=== PATIENT | male | born 1980 | race Hispanic/Latino ===

== ENCOUNTER 2021-09-03 15:28 | Emergency (ER) | payer OTHER, SELFPAY ==
--- NOTE | 2021-09-03 15:29 | ED.URI ---
HPI - URI/Sore Throat General Chief Complaint: Upper Respiratory Infection Stated Complaint: congestion/sore throat Time Seen by Provider: 09/03/21 15:29 Source: patient and RN notes reviewed History of Present Illness HPI Narrative: Patient is a 41-year-old female presents the urgent care with complaints of chills, sweats, fever, sore throat and congestion. Patient states that it started . 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 Patient has been taking Aleve [id number] for chills and sweats. No other acute complaints. No acute distress noted. Patient aware the plan of care. Some parts of this dictation were generated by voice recognition software and may contain typographical and/or grammatical inaccuracies. Related Data Home Medications Medication Instructions Recorded Confirmed diltiazem HCl 09/03/21 lisinopril 09/03/21 rosuvastatin mg 09/03/21 sildenafil 09/03/21 Allergies Allergy/AdvReac Type Severity Reaction Status Date / Time poison oak extract Allergy Mild Verified 06/18/19 20:01 poison sumac extract Allergy Mild Verified 06/18/19 20:01 Review of Systems Review of Systems: CONSTITUTIONAL: Reports of fever, chills, sweats EYES: Denies visual changes, redness, or discharge. ENT: Reports of sinus congestion, sore throat CARDIOVASCULAR: Denies chest pain, palpitations, or edema. RESPIRATORY: Denies cough or dyspnea. GASTROINTESTINAL: Denies abdominal pain, nausea, vomiting, or diarrhea. GENITOURINARY: Denies dysuria or hematuria. SKIN: Denies rash or itching. MUSCULOSKELETAL: Denies back pain, joint pain, or myalgia. NEUROLOGIC: Denies headache, numbness, or weakness. All other systems reviewed are negative, except as documented in HPI. PMFSH Comments At the time of my signature, I reviewed and agree with the nursing past medical, surgical, social, and family history. There is no relevant family history pertinent to the patient complaint. Exam Narrative: GENERAL: This is a well-nourished, well-developed patient, mild diaphoretic HEAD: normocephalic, atraumatic. EYES: PERRL. Sclera clear/white. Vision is grossly intact. EARS: External ears normal, auditory canals clear and without drainage, TMs normal without perforation. Hearing grossly intact. NOSE: External nose normal with no obvious nasal discharge, mild bilateral erythemic nares with clear rhinorrhea. THROAT: Mucous membranes moist, posterior pharynx clear. Mild postnasal drainage NECK: Neck supple CARDIOVASCULAR: Regular rate and rhythm without murmurs, gallops, or rubs. RESPIRATORY: Clear to auscultation. Breath sounds equal bilaterally. No wheezes, rales, or rhonchi. SKIN: Slightly flushed. Warm, intact with no suspicious lesions or rash, good texture and turgor. NEURO: awake, alert, and oriented to person, place and time. There were no obvious focal neurologic abnormalities. EXTREMITIES: No clubbing, cyanosis, or edema. Course Vital Signs Vital signs: Vital Signs Temperature 97.1 F L 09/03/21 15:37 Pulse Rate 74 09/03/21 15:37 Respiratory Rate 16 09/03/21 15:37 Blood Pressure 143/100 H 09/03/21 15:37 Pulse Oximetry 97 09/03/21 15:37 Temperature 97.1 F L 09/03/21 15:37 Pulse Rate 74 09/03/21 15:37 Respiratory Rate 16 09/03/21 15:37 Blood Pressure 143/100 H 09/03/21 15:37 Pulse Oximetry 97 09/03/21 15:37 Reviewed-patient is informed that they may have pre-hypertension or hypertension based on a blood pressure reading in the department. I recommend the patient call the primary care provider listed on their discharge instructions or a physician of their choice this week to arrange follow-up for further evaluation of possible pre-hypertension or hypertension. MDM - URI/Sore Throat MDM Narrative Medical decision making narrative: Reviewed lab
[2021-09-03 15:37] VITALS: BP 143/100; PULSE 74; RESP 16; TEMP 36.2; O2SAT 97
== END 2021-09-03 16:15 | disposition home or self-care (01) ==
PROVIDERS: Emergency Provider Nurse Practitioner Family
DX: J06.9 Acute upper respiratory infection, unspecified (principal); Z20.822 Contact with and (suspected) exposure to COVID-19; E78.00 Pure hypercholesterolemia, unspecified; I10 Essential (primary) hypertension
CPT/HCPCS: 87081; 87426; 87804; 87880; 99213; C9803; G0463

== ENCOUNTER 2023-09-17 16:02 | Emergency (ER) | payer OTHER, SELFPAY ==
--- NOTE | ~2023-09-17 | XR_ITS ---
EXAMINATION: XR chest 2V DATE: 09/17/2023 17:03 INDICATION: Productive cough TECHNIQUE: PA and lateral views of the chest are obtained. COMPARISON: 02/03/2016 FINDINGS: The lungs are free of acute opacities. No pleural effusion or pneumothorax. The cardiomedia stinal silhouette is normal. There is moderate thoracic spondylosis. IMPRESSION: 1. No acute cardiopulmonary abnormality. Reviewed, dictated and finalized at location L. ER [employer] REPA[employer]ER
[2023-09-17 16:25] VITALS: BP 135/103; PULSE 89; RESP 18; TEMP 38.9; O2SAT 97
[2023-09-17 16:29] VITALS: BP 135/103; PULSE 89; RESP 18; TEMP 38.9; O2SAT 97
[2023-09-17 16:45] VITALS: BP 149/99; PULSE 88
[2023-09-17 16:53] VITALS: TEMP 38.9
[2023-09-17] MEDS: ACETAMINOPHEN 500 MG TABLET 1000 MG PO (16:53)
--- NOTE | 2023-09-17 17:14 | ED.URI ---
HPI - URI/Sore Throat General Chief Complaint: Upper Respiratory Infection Stated Complaint: Bodyaches/Fever Source: patient and RN notes reviewed Mode of arrival: ambulatory Limitations: no limitations History of Present Illness HPI Narrative: 43-year-old male presented for complaint of headache, body aches, sinus pressure/congestion, cough, fever/chills. onset slowly over the past few days. Symptoms started with tickle in throat 3 days ago. He states he felt the worst yesterday. Not taking anything for symptoms. Denies sob, wheezing, n/v/d. Patient states he had COVID at the end of July, with symptoms until 09/10/2023. Also reports previous covid resulted in hospitalization. MD elicited complaint: cough Related Data Home Medications Medication Instructions Recorded Confirmed diltiazem HCl 90 mg tablet 09/03/21 lisinopril 40 mg tablet 09/03/21 rosuvastatin 20 mg tablet mg 09/03/21 aspirin 81 mg chewable tablet 81 mg PO DAILY 09/17/23 09/17/23 Allergies Allergy/AdvReac Type Severity Reaction Status Date / Time poison oak extract Allergy Mild Unknown Verified 09/17/23 16:27 poison sumac extract Allergy Mild Unknown Verified 09/17/23 16:27 Review of Systems Review of Systems: CONSTITUTIONAL: Endorses malaise, chills, sweats, fever EYES: Denies visual changes, redness, or discharge ENT: Reports rhinorrhea, congestion, sore throat CARDIOVASCULAR: Denies chest pain, palpitations, edema RESPIRATORY: Reports cough, Denies dyspnea GASTROINTESTINAL: Denies abdominal pain, nausea, vomiting, diarrhea SKIN: Denies rash or itching MUSCULOSKELETAL: Endorses myalgia NEUROLOGIC: Endorses headache [facility] Past Medical History Medical History (Updated 09/17/23 @ 17:31 by Joyce Neumann, SLEEVE TAILOR) CAD (coronary artery disease) HTN (hypertension) Exam Narrative: GENERAL: Mildly Ill-appearing, nontoxic no acute distress. HEAD: Normocephalic EYES: PERRLA, conjunctivae clear ENT: Mucous membranes moist. TM pearly hartman with dull light reflex bilaterally; no tragal tenderness. Oropharynx erythematous without lesions or exudate, no drooling, no hoarseness, no trismus, uvula midline. CHEST: Clear to auscultation, breath sounds equal. No wheezing, rhonchi, rales, or stridor. No respiratory distress, speaks in full sentences. HEART: Regular rate and rhythm. No murmur heard. SKIN: Warm, dry, no rash. NEURO: Alert and oriented x3. PSYCH: Normal mood and affect Course Course Emergency Course: Patient is aware of diagnosis, understands and agrees to treatment plan. Anticipatory guidance given. Patient agrees to follow-up as directed and is aware of reasons to seek care at the emergency department. Portions of this record may have been created with voice recognition software Level of Care: Express Care Visit Vital Signs Vital signs: Vital Signs Temperature 102.0 F H 09/17/23 16:25 Pulse Rate 89 09/17/23 16:25 Respiratory Rate 18 09/17/23 16:25 Blood Pressure 135/103 H 09/17/23 16:25 Pulse Oximetry 97 09/17/23 16:25 Oxygen Delivery Room Air 09/17/23 16:25 Temperature 102.0 F H 09/17/23 16:53 Pulse Rate 88 09/17/23 16:45 Respiratory Rate 18 09/17/23 16:29 Blood Pressure 149/99 H 09/17/23 16:45 Pulse Oximetry 97 09/17/23 16:29 Oxygen Delivery Room Air 09/17/23 16:29 reviewed MDM - URI/Sore Throat MDM Narrative Medical decision making narrative: COVID positive. Discussed physical exam findings. Advised supportive measures and signs/symptoms to go to the ER. Pt is appropriate for outpt treatment and f/u. Differential Diagnosis Differential diagnosis: Likely upper respiratory infection, sinusitis and viral infection Lab Data Labs: Influenza A Screen Negative Reference Range: Negative Influenza B Screen Negative Reference Range: Negative
[2023-09-17 17:32] VITALS: TEMP 37.7
== END 2023-09-17 17:32 | disposition home or self-care (01) ==
PROVIDERS: Emergency Provider Nurse Practitioner Family; PCP Hospitalist
DX: U07.1 COVID-19 (principal); I25.10 Atherosclerotic heart disease of native coronary artery without angina pectoris; I10 Essential (primary) hypertension; Z79.82 Long term (current) use of aspirin
CPT/HCPCS: 71046; 87426; 87804; 99213; A9270; C9803; G0463

== ENCOUNTER 2024-12-19 13:46 | Emergency (ER) | payer SELFPAY ==
[2024-12-19 13:55] VITALS: BP 146/107; PULSE 68; RESP 14; TEMP 36.4; O2SAT 99
--- NOTE | 2024-12-19 14:02 | ED_ITS ---
HPI - URI/Sore Throat General Chief Complaint: Upper Respiratory Infection Stated Complaint: freezing ,VELA, swollen achy,congestion Time Seen by Provider: 12/19/24 14:02 Source: patient, RN notes reviewed and old records reviewed Mode of arrival: ambulatory Limitations: no limitations History of Present Illness HPI Narrative: Patient presents with complaints of flu-like symptoms for the past 2-3 days. He recently moved and feels as though he has some sensitivity to his surroundings. He began taking Flonase and Margie couple of days ago. He does admit that he for about take it this morning, also for cause take his blood pressure medications today. He is unsure of fever status over the past few days. Reports chills, headache, body aches congestion. He does not appear to be in any distress at this time Related Data Home Medications ?Medication ?Instructions ?Recorded ?Confirmed ?Last Taken ?Type diltiazem HCl 90 mg tablet 90 mg PO DAILY 09/03/21 12/19/24 Unknown History aspirin 81 mg chewable tablet 81 mg PO DAILY 09/17/23 12/19/24 Unknown History lisinopril 40 mg tablet 40 mg PO DAILY 12/19/24 12/19/24 Unknown History rosuvastatin 20 mg tablet 20 mg PO DAILY 12/19/24 12/19/24 Unknown History Allergies Allergy/AdvReac Type Severity Reaction Status Date / Time poison oak extract Allergy Mild Unknown Verified 12/19/24 13:48 poison sumac extract Allergy Mild Unknown Verified 12/19/24 13:48 Review of Systems Review of Systems: All systems reviewed & are unremarkable except as noted in HPI and below Constitutional: Constitutional: Reports no additional constitutional complaints, Reports body ache(s), Reports chills, Reports headache(s) and Reports lethargy ENT: Reports system reviewed and no additional complaints, except as documented, Reports nasal congestion and Reports nasal discharge Cardiovascular: Cardiovascular: Reports no additional cardiovascular complain ts Respiratory: Respiratory: Reports no additional respiratory complaints and Reports wheezing (Occasional) Gastrointestinal: Gastrointestinal: Reports no additional gastrointestinal complaints [facility] Past Medical History Medical History (Updated 12/19/24 @ 14:40 by Alysia Sommers APRN) HTN (hypertension) CAD (coronary artery disease) Comments At the time of my signature, I reviewed and agree with the nursing past medical, surgical, social, and family history. There is no relevant family history pertinent to the patient complaint. Exam Const: General: cooperative, no acute distress, alert and awake Orientation/consciousness: oriented to person, oriented to place and oriented to time HENMT: Head: normal to inspection Ears: TM's normal bilaterally Mouth: Yes moist mucous membranes Resp: Effort & Inspection: normal respiratory effort and able to speak in complete sentences Auscultation: clear to auscultation bilaterally, no crackles, no rales, no rhonchi and no wheezes Cardio: Palpation: normal PMI Rate: regular rate Rhythm: regular rhythm Heart sounds: S1 normal heart sound present and S2 normal heart sound present Neuro: General: oriented to person, oriented to place and oriented to time Cranial nerves: Yes CN's II-XII intact bilaterally Psych: Appearance: grossly normal Thought process: Normal thought process present Insight: Good insight present (Psych) Judgement: Good judgement present (Psych) Course Course Level of Care: Express Care Visit Vital Signs Vital signs: Reviewed MDM - URI/Sore Throat MDM Narrative Medical decision making narrative: Negative flu, negative COVID. Patient nontoxic appearing. Stable for discharge home with supportive care measures. He is advised to continue with Flonase and Margie, start prednisone and albuterol. Emergency department precautions discussed. Discharge instructions reviewed with patient, as well as provided in writing per nursing staff. The instructions also include specific and strict return/GO TO THE ER as well as f/u information. All questions have been answered, and the patient deny any further questions with discharge and discharge plan. Some parts of this dictation were generated by voice recognition software and may contain typographical and/or grammatical inaccuracies. Differential Diagnosis Differential diagnosis: Likely upper respiratory infection, otitis media, sinusitis, viral infection, influenza and other (Allergic rhinitis) Medical Records Attestation: I reviewed the patient's medical records. Lab Data Attestation: I reviewed the patient's lab results. Discharge Plan Discharge Clinical Impression: Upper respiratory infection Qualifiers: URI type: unspecified URI Qualified Code(s): J06.9 - Acute upper respiratory infection, unspecified Patient Disposition: Home, Self-Care Condition: Stable Instructions: Antibiotic Form Additional Instructions: Take all medications as prescribed. Follow with primary care provider. Emergency department for new or worsening symptoms Patient Language: Turkmen Prescriptions: New prednisone 50 mg tablet 50 mg PO DAILY Qty: 5 0RF albuterol sulfate [Ventolin HFA] 90 mcg/actuation HFA aerosol inhaler 2 puff inhalation QID PRN (Reason: shortness of breath or wheezing) Qty: 8.5 0RF No Action lisinopril 40 mg tablet 40 mg PO DAILY rosuvastatin 20 mg tablet 20 mg PO DAILY diltiazem HCl 90 mg tablet 90 mg PO DAILY aspirin 81 mg Tablet,Chewable 81 mg PO DAILY Follow-up/Referrals: Lara,Reyes Jha Jr., MD [Primary Care Provider] - Stand Alone Forms: Work/School Release IP Time of Disposition: 14:41
[2024-12-19 14:27] LABS: EDCOVIDSCREEN Negative (Negative); EDINFLUASCREEN Negative (Negative); EDINFLUBSCREEN Negative (Negative)
== END 2024-12-19 14:49 | disposition home or self-care (01) ==
PROVIDERS: Emergency Provider Nurse Practitioner Family; PCP Hospitalist
DX: J06.9 Acute upper respiratory infection, unspecified (principal); I25.10 Atherosclerotic heart disease of native coronary artery without angina pectoris; I10 Essential (primary) hypertension; Z79.899 Other long term (current) drug therapy; Z79.82 Long term (current) use of aspirin; Z20.822 Contact with and (suspected) exposure to COVID-19
CPT/HCPCS: 87426; 87804; 99213; G0463

== ENCOUNTER 2025-02-06 10:09 | Emergency (ER) | payer SELFPAY ==
[2025-02-06 10:19] VITALS: BP 132/96; PULSE 73; RESP 20; TEMP 36.2; O2SAT 98
--- NOTE | 2025-02-06 10:59 | ED_ITS ---
HPI - URI/Sore Throat General Chief Complaint: Upper Respiratory Infection Stated Complaint: Sinus Time Seen by Provider: 02/06/25 10:59 Source: patient, RN notes reviewed and old records reviewed Mode of arrival: ambulatory Limitations: no limitations History of Present Illness HPI Narrative: 44-year-old male presents to the [facility] with 10 day history of sinus congestion drainage. Also reports cough that is worse at night. For last 3 days started taking Margie and Flonase. States that the 1st 2 days he felt feverish. Related Data Home Medications ?Medication ?Instructions ?Recorded ?Confirmed ?Last Taken ?Type diltiazem HCl 90 mg tablet 90 mg PO DAILY 09/03/21 12/19/24 Unknown History aspirin 81 mg chewable tablet 81 mg PO DAILY 09/17/23 12/19/24 Unknown History lisinopril 40 mg tablet 40 mg PO DAILY 12/19/24 12/19/24 Unknown History rosuvastatin 20 mg tablet 20 mg PO DAILY 12/19/24 12/19/24 Unknown History Allergies Allergy/AdvReac Type Severity Reaction Status Date / Time poison oak extract Allergy Mild Unknown Verified 02/06/25 10:11 poison sumac extract Allergy Mild Unknown Verified 02/06/25 10:11 Review of Systems Review of Systems: All systems reviewed & are unremarkable except as noted in HPI and below Constitutional: Constitutional: Reports no additional constitutional complaints ENT: Reports as per HPI, Reports nasal congestion and Reports sinus pressure Cardiovascular: Cardiovascular: Reports no additional cardiovascular complaints, Denies chest pain and Denies dyspnea Respiratory: Respiratory: Reports as per HPI, Reports no additional respiratory complaints, Denies chest congestion, Reports cough and Denies dyspnea Musculoskeletal: Musculoskeletal: Reports no additional musculoskeletal complaints Integumentary/Breasts: Skin/Breast: Reports system reviewed and no additional complaints, except as docu PMFSH Past Medical History Medical History HTN (hypertension) CAD (coronary artery disease) Comments At the time of my signature, I reviewed and agree with the nursing past medical, surgical, social, and family history. There is no relevant family history pertinent to the patient complaint. Exam Const: General: cooperative, healthy appearing, comfortable, no acute distress, well developed, alert and well nourished Nutritional Appearance: well nourished Orientation/consciousness: patient oriented x3 Limitations: no limitations HENMT: Head: normal to inspection Ears: hearing grossly normal bilaterally, external ears normal, TM's normal bilaterally, EAC's normal, mastoids normal and no periauricular adenopathy Face/Nose/Sinus: Normal external nose present, Normal nares present and sinuses nontender Face and sinus: normal facial exam Mouth: Yes Normal oral and palatal mucosa present, Yes lip normal, Yes tongue normal and Yes moist mucous membranes Throat: posterior oropharynx normal, uvula midline, postnasal drainage and no uvular edema Eyes: General: appearance normal, both eyes and all related structures Alignment and Position: alignment normal Neck: Neck: normal visual inspection, full ROM, no lymphadenopathy and no meningeal signs Chest: Chest palpation & inspection: normal inspection of the chest Resp: Effort & Inspection: normal respiratory effort and able to speak in complete sentences Auscultation: no crackles, no rales, no rhonchi and wheezes expiratory wheezes and scattered wheezes Cardio: Rate: regular rate Skin: General skin exam: normal color and no rashes or lesions noted Neuro: General: patient oriented x3, gait normal, moves all extremities and no meningeal signs Cognition (Neuro): normal cognition Speech: normal speech Gait exam (Neuro): Normal gait present Extrem: General: normal to inspection, full ROM, capillary refill normal and normal gait Psych: Appearance: grossly normal and well kempt Mental Status: mental status grossly normal Speech and movement: Normal speech and movement present and Clear speech present Affect: normal affect Attitude: cooperative Course Course Level of Care: Express Care Visit Vital Signs Vital signs: Vital Signs Temperature 97.2 F L 02/06/25 10:19 Pulse Rate 73 02/06/25 10:19 Respiratory Rate 20 02/06/25 10:19 Blood Pressure 132/96 H 02/06/25 10:19 Pulse Oximetry 98 02/06/25 10:19 Oxygen Delivery Room Air 02/06/25 10:19 Temperature 97.2 F L 02/06/25 10:19 Pulse Rate 73 02/06/25 10:19 Respiratory Rate 20 02/06/25 10:19 Blood Pressure 132/96 H 02/06/25 10:19 Pulse Oximetry 98 02/06/25 10:19 Oxygen Delivery Room Air 02/06/25 10:19 Reviewed MDM - URI/Sore Throat MDM Narrative Medical decision making narrative: Patient sitting in exam room. Patient nontoxic, vitals stable. Patient reports 10 day history of sinus congestion, drainage and a postnasal drip cough. Patient has tried Margie and Flonase for the last 3 days with improvement. Discussed attempting antibiotics, albuterol. Patient appropriate for outpatient treatment and follow-up Discharge instructions reviewed with patient, as well as provided in writing per nursing staff. The instructions also include specific and strict return/GO TO THE ER as well as f/u information. All questions have been answered, and the patient deny any further questions with discharge and discharge plan. Some parts of this dictation were generated by voice recognition software and may contain typographical and/or grammatical inaccuracies. Differential Diagnosis Differential diagnosis: Likely upper respiratory infection, otitis media, sinusitis, viral infection and bronchitis Critical Care Time Critical Care Time Critical Care Time: No Discharge Plan Discharge Clinical Impression: Sinusitis, Bronchitis Patient Disposition: Home Condition: Stable Instructions: Antibiotic Form, Sinusitis (ED), Acute Bronchitis (ED) Additional Instructions: It is very important to treat your symptoms. Drink plenty of water, Gatorade, Pedialyte, ice pops or Jell-O. -Alternate Tylenol and Motrin per package directions for fever or pain. You can alternate every 4 hours -Antihistamine medication such as Zyrtec/Claritin/Margie during the day can help improve symptoms. -doing daily nasal irrigations can help relieve pressure your sinuses. Things like a Neti pot -Use Flonase twice a day for 5 days then daily to help reduce the inflammation and dry up your sinuses. -You can also use Mucinex. Be sure to drink plenty of water with this medication at least 8 ounces with every dose and it is important to drink 8 to 10 glasses of water per day. Water is a natural decongestant -Eat and drink things that are easy to swallow, like tea or soup, or popsicles. -Oral rinses such as: Salt water gargles and/or may use topical anesthetic (eg. Chloraseptic spray) or lozenges to relieve dryness or throat pain). -Frequent hand washing or hand customs guard is one of the best ways to prevent spread of infection. -Using a vaporizer or humidifier at night will also help thin secretions and help with coughing up phlegm. -Follow up with primary care provider in 7-10 days if condition is not improving - For new or worsening symptoms go directly to the nearest ER Patient Language: Cape Verdean Prescriptions: New amoxicillin-pot clavulanate 875-125 mg tablet 1 tablet PO Q12H Qty: 14 0RF albuterol sulfate 90 mcg/actuation HFA aerosol inhaler 2 puff inhalation QID PRN (Reason: shortness of breath or wheezing) Qty: 6.7 0RF No Action lisinopril 40 mg tablet 40 mg PO DAILY rosuvastatin 20 mg tablet 20 mg PO DAILY albuterol sulfate [Ventolin HFA] 90 mcg/actuation HFA aerosol inhaler 2 puff inhalation QID PRN (Reason: shortness of breath or wheezing) Qty: 8.5 0RF diltiazem HCl 90 mg tablet 90 mg PO DAILY aspirin 81 mg Tablet,Chewable 81 mg PO DAILY Follow-up/Referrals: Lara,Reyes Jha Jr., MD [Primary Care Provider] - 2 Weeks ([facility] follow-up) Stand Alone Forms: Work/School Release IP Time of Disposition: 11:12
== END 2025-02-06 11:15 | disposition home or self-care (01) ==
PROVIDERS: Emergency Provider Nurse Practitioner; PCP Hospitalist
DX: J32.9 Chronic sinusitis, unspecified (principal); J40 Bronchitis, not specified as acute or chronic; I25.10 Atherosclerotic heart disease of native coronary artery without angina pectoris; I10 Essential (primary) hypertension; Z79.82 Long term (current) use of aspirin
CPT/HCPCS: 99213; G0463